=== PATIENT | male | born 1960 | race Caucasian/White ===

== ENCOUNTER 2020-01-01 13:04 | Emergency (ER) | payer SELFPAY ==
[~2020-01-01] VITALS: Ht 165.1 cm; Wt 73.0 kg
[2020-01-01] MEDS ORDERED: ALBUTEROL (13:18)
[2020-01-01] MEDS ORDERED: PREDNISONE 20MG TABLET PO ONE (14:45)
[2020-01-01] MEDS ORDERED: ALBUTEROL (0.083%) 2.5MG/3ML NEB HHN ONE (14:45)
[2020-01-01 16:25] VITALS: BP 128/67
== END 2020-01-01 16:33 | disposition home or self-care (01) ==
LOC: ER 13:04
DX: J45.909 Unspecified asthma, uncomplicated (principal)
CPT/HCPCS: 71045; 99283; J7512; Z7610

== ENCOUNTER 2020-07-01 11:00 | Emergency (ER) | payer SELFPAY ==
[~2020-07-01] VITALS: Ht 165.1 cm; Wt 77.0 kg
[~2020-07-01 11:00] MED LIST: ALBUTEROL
[2020-07-01 11:25] VITALS: BP 130/85
[2020-07-01] MEDS ORDERED: ALBUTEROL (0.083%) 2.5MG/3ML NEB HHN STA (11:34)
[2020-07-01] MEDS ORDERED: IPRATROPIUM BROMIDE (0.02%) 0.5MG/2.5ML NEB HHN STA (11:34)
[2020-07-01] MEDS ORDERED: PREDNISONE 20MG TABLET PO STA (11:34)
== END 2020-07-01 13:15 | disposition home or self-care (01) ==
LOC: ER 11:00
DX: J45.901 Unspecified asthma with (acute) exacerbation (principal); F17.210 Nicotine dependence, cigarettes, uncomplicated
CPT/HCPCS: 93005; 94640; 99283; 99406; J7512; Z7610